=== PATIENT | female | born 1950 | race Caucasian/White ===

== ENCOUNTER 2017-09-17 04:58 | Observation (INO) | payer OTHER, MEDICARE ==
[~2017-09-17] VITALS: Ht 162.6 cm; Wt 81.6 kg
[~2017-09-17 04:58] MED LIST: AMLODIPINE BESYL5 MG PO; ASACOL HD800 MG PO
[2017-09-17] MEDS ORDERED: PANTOPRAZOLE 40 MG 10ML VIAL IV STA (05:29)
[2017-09-17] MEDS ORDERED: SODIUM CHLORIDE 0.9% 1000ML 1,000 ML IV STA (05:29)
[2017-09-17] MEDS ORDERED: ONDANSETRON HCL 4 MG ORAL DISINTEGRATING TAB PO ONE (05:30)
[2017-09-17] MEDS ORDERED: MECLIZINE HCL 12.5 MG TAB PO ONE (05:45)
[2017-09-17 06:29] LABS: BASOPHILS # (AUTO) 0.1 (0.0-0.1); BASOPHILS % 0.5 % (0.0-1.0); EOSINOPHILS # (AUTO) 0.1 (0.0-0.4); HEMATOCRIT 40.8 % (34.2-44.1); HEMOGLOBIN 13.4 g/dL (12.0-16.0); LYMPHOCYTES % 17.6 % (18.0-39.1); MEAN CORPUSCULAR HEMOGLOBIN 28.3 pg (28-32); MEAN CORPUSCULAR HGB CONC 32.8 g/dL (31-35); MEAN CORPUSCULAR VOLUME 86.1 fL (81-99); MONOCYTES # (AUTO) 0.5 (0.2-0.8); MONOCYTES % 4.2 % (4.4-11.3); NEUTROPHILS # (AUTO) 8.6 (2.1-6.9); NEUTROPHILS % 76.3 % (38.7-80.0); PLATELET COUNT 229 x10e3/uL (140-360); RED BLOOD COUNT 4.74 x10e6/uL (3.6-5.1); RED CELL DISTRIBUTION WIDTH 13.8 % (11.7-14.4)
--- NOTE | 2017-09-17 06:29 | Diagnostic Imaging Report ---
EXAMINATION: Head CT without contrast. HISTORY:Dizziness and vomiting. COMPARISON:CT brain from 09/19/2013. TECHNIQUE: Multidetector axial images were obtained from the foramen magnum to the vertex without contrast. The images were reconstructed using brain and bone algorithms. Thin section brain images were reformatted into coronal and sagittal planes. Intravenous contrast: None IMAGE QUALITY: Acceptable. FINDINGS: Skull/scalp: No lytic or blastic. lesions. No surgical changes. Parenchyma: Unchanged focal hypodensity in the posterior aspect of left putamen represents prominent perivascular space or old lacunar infarct. No acute hemorrhage, mass or acute major vascular territorial infarct. Arteries: No density suggestive of thrombosis. Dural sinuses: No abnormal density suggestive of thrombosis. Ventricles: No hydrocephalus or displacement. Extra-axial spaces: No abnormal density. Brain volume: Normal for age. Craniocervical junction: No mass, Chiari malformation, or basilar invagination. Sella: No mass. Paranasal/mastoid sinuses: Imaged portions unremarkable. IMPRESSION: No acute intracranial abnormality. Signed by: Dr. Angela Anderson M.D. on 09/17/2017 6:26 AM
[2017-09-17 06:45] LABS: ALANINE AMINOTRANSFERASE 14 IU/L (0-55); ALBUMIN 3.6 g/dL (3.5-5.0); ALKALINE PHOSPHATASE 68 IU/L (40-150); ANION GAP 15.1 mmol/L (8-16); BLOOD UREA NITROGEN 18 mg/dL (7-26); BUN/CREATININE RATIO 19 (6-25); CALCIUM 9.7 mg/dL (8.4-10.2); CARBON DIOXIDE 24 mmol/L (22-29); CHLORIDE 103 mmol/L (98-107); CREATINE KINASE 41 IU/L (29-168); CREATININE, SERUM 0.95 mg/dL (0.57-1.11); EST GLOMERULAR FILTRATION RATE 59 ML/MIN (60-); GLUCOSE 135 mg/dL (74-118); MAGNESIUM 1.8 MG/DL (1.3-2.1); POTASSIUM 4.1 mmol/L (3.5-5.1); SODIUM 138 mmol/L (136-145)
--- NOTE | 2017-09-17 06:48 | Diagnostic Imaging Report ---
CHEST SINGLE (PORTABLE), 09/17/2017 5:29 AM Technique: CHEST SINGLE (PORTABLE) Comparison: 11/18/2015 Clinical history: Dizziness, vomiting Findings: See Impression Impression: Limited portable view. 1. Stable cardiomediastinal silhouette. 2. Stable linear bibasilar opacities, favor atelectasis or scarring. Consider follow-up upright PA and lateral. 3. Mildly elevated left hemidiaphragm. No effusion or pneumothorax. Signed by: Dr Jolly Ho MD on 09/17/2017 6:44 AM
[2017-09-17 06:58] LABS: INR 1.17
[2017-09-17 06:59] LABS: PARTIAL THROMBOPLASTIN TIME 28.6 seconds (23.8-35.5)
[2017-09-17] MEDS ORDERED: LEVOTHYROXINE50 MCG PO (07:01)
[2017-09-17] MEDS ORDERED: ATENOLOL50 MG PO (07:07)
[2017-09-17] MEDS ORDERED: FLORASTOR250 MG PO (07:07)
[2017-09-17] MEDS ORDERED: APRISO0.375 GM PO (07:07)
[2017-09-17] MEDS ORDERED: ONE DAILY1 EAC1 PO (07:07)
[2017-09-17] MEDS ORDERED: ASPIRIN 325 MG TAB EC PO STA (07:23)
[2017-09-17] MEDS ORDERED: PROMETHAZINE 25MG/ NS 50ML (IV) IV PRN (07:30)
[2017-09-17] MEDS ORDERED: SODIUM CHLORIDE 0.9% 1000ML 1,000 ML IV SCH (07:30)
[2017-09-17] MEDS ORDERED: MECLIZINE HCL 12.5 MG TAB PO PRN (07:30)
[2017-09-17] MEDS ORDERED: ONDANSETRON HCL 4 MG ORAL DISINTEGRATING TAB PO PRN (07:30)
[2017-09-17] MEDS ORDERED: PROMETHAZINE 12.5MG/ NACL 0.9% 12.5 MG/50 ML BAG IV PRN (07:45)
--- OUTSIDE RECORDS SUMMARY | 2017-09-17 07:46 | XMS REPORT ---
Author Author [facility] [place] Address Unknown Phone Unavailable Care Team Providers Care Leaf Conditioner Name Role Phone LAZ RODRIGUEZ Unavailable Unavailable Problems This patient has no known problems. Allergies, Adverse Reactions, Alerts This patient has no known allergies or adverse reactions. Medications This patient has no known medications. Results Test Description Test Time Test Comments Text Results Atomic Results Result Comments CT BRAIN WO [place] [address] Patient Name: CALI SIDDIQUI MR #: [id number] : 1950 Age/Sex: 66/F Req #: [id number] Adm Physician: Ordered by: LAZ RODRIGUEZ MD Report #: [id number] Location: ER Room/Bed: Procedure: [id number] CT/CT BRAIN WO Exam Date: 09/17/17 Exam Time: 0600 REPORT STATUS: Signed EXAMINATION: Head CT without contrast. HISTORY:Dizziness and vomiting. COMPARISON:CT brain from 09/19/2013. TECHNIQUE: Multidetector axial images were obtained from the foramen magnum to the vertex without contrast. The images were reconstructed using brain and bone algorithms. Thin section brain images were reformatted into coronal and sagittal planes. Intravenous contrast: None IMAGE QUALITY: Acceptable. FINDINGS: Skull/scalp: No lytic or blastic. lesions. No surgical changes. Parenchyma: Unchanged focal hypodensity in the posterior aspect of left putamen represents prominent perivascular space or old lacunar infarct. No acute hemorrhage, mass or acute major vascular territorial infarct. Arteries: No density suggestive of thrombosis. Dural sinuses: No abnormal density suggestive of thrombosis. Ventricles: No hydrocephalus or displacement. Extra-axial spaces: No abnormal density. Brain volume: Normal for age. Craniocervical junction: No mass, Chiari malformation, or basilar invagination. Sella: No mass. Paranasal/mastoid sinuses: Imaged portions unremarkable. IMPRESSION: No acute intracranial abnormality. Signed by: Dr. Angela Anderson M.D. on 09/17/2017 6:26 AM Dictated By: ANGELA ANDERSON MD 5 Transcribed By: HUMBERTO on 09/17/17625 COPY TO: LAZ RODRIGUEZ MD CHEST SINGLE (PORTABLE) [place] [address] Patient Name: CALI SIDDIQUI MR #: [id number] : 1950 Age/Sex: 66/F Req #: [id number] Adm Physician: Ordered by: LAZ RODRIGUEZ MD Report #: [id number] Location: ER Room/Bed: Procedure: [id number] DX/CHEST SINGLE (PORTABLE) Exam Date: 09/17/17 Exam Time: 608 REPORT STATUS: Signed CHEST SINGLE (PORTABLE), 2017 5:29 AM Technique: CHEST SINGLE (PORTABLE) Comparison: 11/18/2015 Clinical history: Dizziness, vomiting Findings: See Impression Impression: Limited portable view. 1. Stable cardiomediastinal silhouette. 2. Stable linear bibasilar opacities, favor atelectasis or scarring. Consider follow-up upright PA and lateral. 3. Mildly elevated left hemidiaphragm. No effusion or pneumothorax. Signed by: Dr Nabeel Ho MD on 09/17/2017 6 :44 AM Dictated By: NABEEL HO MD 3 Transcribed By: HUMBERTO on 09/17/17643 COPY TO: LAZ RODRIGUEZ MD
[2017-09-17] MEDS ORDERED: ASPIRIN 81 MG ENTERIC COATED PO SCH (09:00)
[2017-09-17 09:31] LABS: BILIRUBIN,URINE NEGATIVE (NEGATIVE); CLARITY,URINE CLEAR (CLEAR); COLOR,URINE YELLOW (YELLOW); KETONES,URINE NEGATIVE (NEGATIVE); LEUKOCYTE ESTERASE ,URINE TRACE (NEGATIVE); NITRITE,URINE NEGATIVE (NEGATIVE); PROTEIN,URINE DIPSTICK NEGATIVE (NEGATIVE); URINE UROBILINOGEN 0.2 mg/dL (0.2 - 1)
[2017-09-17 09:43] LABS: EPITHELIAL CELLS,URINE FEW /LPF; RBC,URINE 0-5 /HPF (0-5); WBC,URINE (MAN) 0-5 /HPF (0-5)
[2017-09-17 10:27] VITALS: BP 130/64
--- NOTE | 2017-09-17 10:31 | Diagnostic Imaging Report ---
History: 66-year-old female with vertigo Comparison studies: CT brain, 09/17/2017 Technique: Sagittal T2; axial DWI, FLAIR, MPGR, T1, Coronal FLAIR. Intravenous contrast: None Findings: Scalp: Normal in signal . No masses . Bone marrow: Normal in signal intensity. Brain sulci: Appropriate for age. Ventricles: Normal in size . No hydrocephalus . Parenchyma: Scattered FLAIR hyperintensities in the supratentorial white matter likely reflect chronic small vessel ischemic changes. No masses, hemorrhage, acute vascular insults. Suprasellar region: No abnormalities. Craniocervical junction: Patent foramen magnum. No Chiari malformation . Vessels: Normal flow-voids in the arteries and sinuses. IMPRESSION: 1. No acute infarct, intracranial mass, or hemorrhage. 2. Mild chronic small vessel ischemic changes in the supratentorial white matter. Preliminary report provided by Dr. Art Key, neuroradiology fellow on 09/17/2017 at 1030 hours. The images and preliminary report were reviewed and signed by Dr. Xochitl Shankar, neuroradiology faculty, on 09/17/2018 at 1256 hours. Signed by: Dr. Xochitl Shankar M.D. on 09/17/2017 12:59 PM
[2017-09-17] MEDS ORDERED: ACETAMINOPHEN 325 MG TAB PO PRN (12:15)
[2017-09-17 13:35] LABS: CREATINE KINASE 34 IU/L (29-168)
[2017-09-17 14:51] VITALS: BP 120/69
[2017-09-17] MEDS ORDERED: MECLIZINE HCL12.5 MG PO (19:06)
[2017-09-17] MEDS ORDERED: ZOFRAN ODT4 MG PO (19:06)
--- NOTE | 2017-09-18 15:08 | History and Physical ---
ADMISSION HISTORY AND PHYSICAL SHORT STAY AND DISCHARGE SUMMARY DATE OF : 1950 PRIMARY CARE PROVIDER: Dr. Rick Campbell ADMITTING DIAGNOSES 1. Benign positional vertigo. 2. Hypertension. 3. Ulcerative colitis. 4. Hypothyroidism. DISCHARGE DIAGNOSIS 1. Benign positional vertigo. 2. Hypertension. 3. Ulcerative colitis. 4. Hypothyroidism. BRIEF HISTORY: Ms. Head is a 66-year-old lady, who woke up in the middle of the night to use the bathroom with extreme vertigo, unable to get to the bathroom except by crawling on the floor due to the room spinning with nausea and vomiting. She came to the emergency department for evaluation. She was already improving at that time that she was seen. REVIEW OF SYSTEMS: She denies fever, chills or weight loss. She denies sinus congestion or sore throat. She denies chest pain or palpitation. She denies shortness breath, wheezing or cough. She denies abdominal pain, but has had nausea vomiting. She denied melena or diarrhea. She denied dysuria or flank pain. She denies rash or pruritus. She denies joint pain or swelling. She denies bleeding or bruising. She denies headache. She has extreme vertigo. Denied loss of consciousness. Denied depression, agitation, homicidal or suicidal ideation. PAST MEDICAL HISTORY: Significant for hypertension, hypothyroidism, ulcerative colitis. MEDICATIONS 1. Atenolol 50 mg daily. 2. Levothyroxine 25 mcg daily. 3. Mesalamine 375 mg 4 times a day. 4. Florastor saccharomyces boulardii 250 mg twice daily. SHE HAS A STATED ALLERGY TO CODEINE AND SOY. FAMILY HISTORY: Remarkable for hypertension. SOCIAL HISTORY: The patient is . Yakut is her primary language. She is , here with her . She does not smoke, drink or use illegal drugs and she is generally independently functioning. PHYSICAL EXAM PSYCHIATRIC: She is alert and oriented times 3 with normal mood and affect. CONSTITUTIONAL: She has a normal body habitus. She is in no acute distress. VITAL SIGNS: Blood pressure 120/69. Pulse 68 and regular. Respiratory rate 18. O2 sat 96% on room air. Temperature 96.6. HEENT: Head is atraumatic. Her eyes are anicteric with clear conjunctivae. Ears and nares are without erythema or discharge. Oropharynx is clear. NECK: Supple with no mass or thyromegaly. LYMPHATIC SYSTEM: She has no palpable cervical, axillary or inguinal adenopathy. CARDIOVASCULAR: Her heart has a regular rate rhythm without murmur or extra sounds. She has no carotid bruit. She has no peripheral edema. She has palpable dorsal pedal pulses. RESPIRATORY: Lungs are clear to auscultation and percussion with normal respiratory effort. GASTROINTESTINAL: Abdomen is soft without organomegaly, masses or tenderness. She has normal bowel sounds present. CUTANEOUS: Her skin is warm dry to touch. No rash or skin breakdown. MUSCULOSKELETAL: Her joints are in normal alignment without erythema or swelling. She has no calf tenderness. NEUROLOGIC: Exam is nonfocal with intact cranial nerves and no motor or sensory deficits. She has no horizontal nystagmus with eye movements. DIAGNOSTIC STUDIES: Chest x-ray shows no acute disease. CT scan of the brain likewise no acute disease and MRI scan of the brain also no acute disease. TSH is 2.710, which is normal. Troponins are both less than 0.001. Chemistry shows normal electrolytes. CO2 24. Creatinine 0.95, BUN 18 for a normal GFR. Glucose is 135. Transaminases, bilirubin, and alk phos are normal. CBC shows a white count of 11.2 with 76% neutrophils. Hemoglobin 13.4, hematocrit 40.8, and platelet count of 229,000. Coags are normal. IMPRESSION AND PLAN 1. Benign positional vertigo or viral labyrinthitis. Patient has been given meclizine and Zofran as needed for dizziness and nausea. This is self-limiting and the patient is already on improving. She is desiring to go home. She is able to ambulate now with minimal symptoms. 2. Hypertension is well controlled on her current medications. Will continue those. 3. Ulcerative colitis, also well controlled on Apriso, so will continue that. 4. For prophylaxis, the patient was getting Pepcid for gastrointestinal prophylaxis. HOSPITAL COURSE: The patient was admitted to the floor overnight for observation. Her vertigo improved dramatically. She was able to get up out of bed and get to the bathroom with minimal symptoms and she was discharged home to continue meclizine as needed, Zofran as needed. She will continue all of her regular home medications as before. She can resume her regular diet, activity as tolerated, and follow up with her PCP within 2 weeks. Job#: [id number] CQ
== END 2017-09-17 19:28 | disposition home or self-care (01) ==
LOC: ER 04:58 → ERHOLD 07:23 → IMCU 09:18
PROVIDERS: ADMIT Internal Medicine; ATTEND Internal Medicine
DX: R42 Dizziness and giddiness (principal); H81.10 Benign paroxysmal vertigo, unspecified ear; H83.09 Labyrinthitis, unspecified ear; R11.2 Nausea with vomiting, unspecified; R94.31 Abnormal electrocardiogram [ECG] [EKG]; E03.9 Hypothyroidism, unspecified; K51.90 Ulcerative colitis, unspecified, without complications; I10 Essential (primary) hypertension; Z88.5 Allergy status to narcotic agent; Z91.048 Other nonmedicinal substance allergy status
CPT/HCPCS: 36415; 70450; 70551; 71045; 80053; 81001; 82550; 82553; 83735; 84443; 84484; 85025; 85610; 85730; 87086; 93005; 93306; 99284; G0378; J7030

== ENCOUNTER 2022-06-28 20:49 | Inpatient (IN) | payer MEDICARE ==
[~2022-06-28] VITALS: Ht 165.1 cm; Wt 86.2 kg
[~2022-06-28 20:49] MED LIST changes: +APRISO0.375 GM PO; +ATENOLOL50 MG PO; +FLORASTOR250 MG PO; +LEVOTHYROXINE50 MCG PO; +MECLIZINE HCL12.5 MG PO; +ONE DAILY1 EAC1 PO; +ZOFRAN ODT4 MG PO
[2022-06-28 21:10] VITALS: BP 125/69
[2022-06-28] MEDS ORDERED: HEPARIN 25,000 UNIT 1,200 UNIT in DEXTROSE 5% 250ML 250 ML IV SCH (22:30)
[2022-06-28] MEDS ORDERED: HEPARIN 25,000 UNIT DRIP IV ONE (22:54)
[2022-06-28 23:00] VITALS: BP 128/70
[2022-06-29] VITALS (18 sets, daily range): BP systolic 117–144; BP diastolic 46–79
[2022-06-29] MEDS ORDERED: ACETAMINOPHEN 325 MG TAB PO PRN
[2022-06-29] MEDS ORDERED: ONDANSETRON HCL INJ 2MG/ML 2ML 2 MG/ML VIAL IV PRN
[2022-06-29] MEDS ORDERED: METOPROLOL TARTRATE INJ 1 MG/ML VIAL IV PRN
[2022-06-29] MEDS ORDERED: POLYETHYLENE GLYCOL 3350 17 GM PACK PO PRN
[2022-06-29 07:16] LABS: BASOPHILS # (AUTO) 0.1 (0.0-0.1); EOSINOPHILS # (AUTO) 0.2 (0.0-0.4); EOSINOPHILS % 2.4 % (0.0-6.0); HEMATOCRIT 30.2 % (34.2-44.1); HEMOGLOBIN 8.5 g/dL (12.0-16.0); LYMPHOCYTES # (AUTO) 2.8 (1.0-3.2); LYMPHOCYTES % 28.6 % (18.0-39.1); MEAN CORPUSCULAR HEMOGLOBIN 19.6 pg (28-32); MEAN CORPUSCULAR HGB CONC 28.1 g/dL (31-35); MEAN CORPUSCULAR VOLUME 69.7 fL (81-99); MONOCYTES # (AUTO) 0.6 (0.2-0.8); MONOCYTES % 6.3 % (4.4-11.3); NEUTROPHILS % 61.5 % (38.7-80.0); PLATELET COUNT 209 x10e3/uL (140-360); RED BLOOD COUNT 4.33 x10e6/uL (3.6-5.1); RED CELL DISTRIBUTION WIDTH 17.8 % (11.7-14.4)
[2022-06-29 07:44] LABS: ALBUMIN 3.2 g/dL (3.5-5.0); ANION GAP 13.1 mmol/L (8-16); CALCIUM 8.8 mg/dL (8.4-10.2); CREATININE, SERUM 0.9 mg/dL (0.57-1.11); POTASSIUM 4.1 mmol/L (3.5-5.1)
[2022-06-29 08:03] LABS: CHOL/HDL RATIO 5.6 (3.0-3.6); MAGNESIUM 1.9 MG/DL (1.3-2.1); PHOSPHORUS 3.7 MG/DL (2.3-4.7)
[2022-06-29] MEDS ORDERED: ONDANSETRON HCL 4 MG ORAL DISINTEGRATING TAB PO PRN (08:15)
[2022-06-29] MEDS ORDERED: ZOLPIDEM TARTRATE 5 MG TAB PO PRN (08:15)
[2022-06-29 08:23] LABS: THYROID STIMULATING HORMONE 3.716 uIU/mL (0.350-4.940)
[2022-06-29 08:49] LABS: FERRITIN 29.53 ng/mL (4.63-204.00)
[2022-06-29] MEDS: MULTIVITAMINS/MINERALS TAB PO SCH (09:50)
[2022-06-29] MEDS: FAMOTIDINE 20 MG/2 ML VIAL IV SCH ×2 (09:50→17:03)
[2022-06-29] MEDS: DOCUSATE SODIUM 100 MG CAP PO SCH ×2 (09:50→17:03)
[2022-06-29] MEDS: MESALAMINE 0.375 GM CAPCR PO SCH (11:24)
[2022-06-29] MEDS ORDERED: ENOXAPARIN SODIUM INJ 100 MG/ML SYR SC SCH (16:00)
[2022-06-29] MEDS ORDERED: SODIUM CHLORIDE 0.9% 1000ML 1,000 ML IV SCH (17:00)
[2022-06-29] MEDS: ENOXAPARIN SODIUM INJ 100 MG/ML SYR SC SCH (17:56)
[2022-06-29] MEDS: ATORVASTATIN 20 MG TAB PO SCH (21:29)
[2022-06-30] VITALS (14 sets, daily range): BP systolic 97–161; BP diastolic 44–98
[2022-06-30] MEDS: LEVOTHYROXINE SODIUM 25 MCG TABLET PO SCH (06:02)
[2022-06-30] MEDS: ENOXAPARIN SODIUM INJ 100 MG/ML SYR SC SCH ×2 (06:02→17:15)
[2022-06-30 07:11] LABS: BASOPHILS # (AUTO) 0.1 (0.0-0.1); BASOPHILS % 0.9 % (0.0-1.0); EOSINOPHILS # (AUTO) 0.2 (0.0-0.4); EOSINOPHILS % 2.9 % (0.0-6.0); HEMATOCRIT 32.7 % (34.2-44.1); HEMOGLOBIN 8.9 g/dL (12.0-16.0); LYMPHOCYTES # (AUTO) 2.1 (1.0-3.2); LYMPHOCYTES % 26.9 % (18.0-39.1); MEAN CORPUSCULAR HEMOGLOBIN 19.4 pg (28-32); MEAN CORPUSCULAR HGB CONC 27.2 g/dL (31-35); MEAN CORPUSCULAR VOLUME 71.4 fL (81-99); MONOCYTES # (AUTO) 0.6 (0.2-0.8); MONOCYTES % 7.2 % (4.4-11.3); NEUTROPHILS # (AUTO) 4.7 (2.1-6.9); NEUTROPHILS % 61.7 % (38.7-80.0); PLATELET COUNT 218 x10e3/uL (140-360); RED BLOOD COUNT 4.58 x10e6/uL (3.6-5.1); RED CELL DISTRIBUTION WIDTH 17.9 % (11.7-14.4)
[2022-06-30 07:53] LABS: ALBUMIN 3.2 g/dL (3.5-5.0); ALBUMIN/GLOBULIN RATIO 0.9 (0.8-2.0); CALCIUM 8.9 mg/dL (8.4-10.2); CREATININE, SERUM 0.91 mg/dL (0.57-1.11)
[2022-06-30] MEDS: DOCUSATE SODIUM 100 MG CAP PO SCH ×2 (09:00→17:15)
[2022-06-30] MEDS: FAMOTIDINE 20 MG/2 ML VIAL IV SCH ×2 (09:10→17:00)
[2022-06-30] MEDS: SODIUM FERRIC GLUCONATE COMPLX 125 MG in SODIUM CHLORIDE 0.9% 100 ML IV SCH (09:10)
[2022-06-30] MEDS: MULTIVITAMINS/MINERALS TAB PO SCH (10:29)
[2022-06-30] MEDS: MESALAMINE 0.375 GM CAPCR PO SCH (10:29)
[2022-06-30] MEDS ORDERED: NIFEDIPINE CR 30 MG TAB PO ONE (10:30)
[2022-06-30] MEDS ORDERED: MIDAZOLAM HCL 2 MG/2 ML VIAL ONE (12:04)
[2022-06-30] MEDS ORDERED: HEPARIN SOD/SOD CHLORIDE 1,000 ML ONE ×2 (12:05→12:10)
[2022-06-30] MEDS ORDERED: FENTANYL CITRATE/PF 100MCG/2 ML INJ ONE (12:05)
[2022-06-30] MEDS ORDERED: LIDOCAINE HCL 2% LOCAL 20 ML VIAL ONE (12:05)
[2022-06-30] MEDS ORDERED: DIPHENHYDRAMINE HCL INJ 50 MG/ML VIAL ONE (13:02)
[2022-06-30] MEDS ORDERED: ACETAMIN/BUTALBITAL/CAFFEINE TAB PO ONE (21:15)
[2022-06-30] MEDS: ATORVASTATIN 20 MG TAB PO SCH (21:26)
[2022-07-01] VITALS (7 sets, daily range): BP systolic 124–136; BP diastolic 53–65
[2022-07-01] MEDS ORDERED: ACETAMIN/BUTALBITAL/CAFFEINE TAB PO PRN (01:00)
[2022-07-01] MEDS: ENOXAPARIN SODIUM INJ 100 MG/ML SYR SC SCH (05:21)
[2022-07-01] MEDS: LEVOTHYROXINE SODIUM 25 MCG TABLET PO SCH (05:21)
[2022-07-01] MEDS: MESALAMINE 0.375 GM CAPCR PO SCH (08:28)
[2022-07-01] MEDS: MULTIVITAMINS/MINERALS TAB PO SCH (08:28)
[2022-07-01] MEDS: DOCUSATE SODIUM 100 MG CAP PO SCH (08:28)
[2022-07-01] MEDS: FAMOTIDINE 20 MG/2 ML VIAL IV SCH (08:29)
[2022-07-01] MEDS: SODIUM FERRIC GLUCONATE COMPLX 125 MG in SODIUM CHLORIDE 0.9% 100 ML IV SCH (08:29)
[2022-07-01] MEDS ORDERED: IRON SUCROSE 100 MG in SODIUM CHLORIDE 0.9% 100 ML IV SCH (09:00)
[2022-07-01] MEDS ORDERED: NIFEDIPINE CR 30 MG TAB PO SCH (09:00)
[2022-07-01] MEDS ORDERED: NIFEDIPINE ER30 M1 PO (11:34)
[2022-07-01] MEDS ORDERED: FERROUS SULFAT325 MG PO (11:35)
[2022-07-01] MEDS ORDERED: ELIQUIS5 MG PO (11:36)
[2022-07-01] MEDS ORDERED: FAMOTIDINE 20 MG TAB PO SCH (16:30)
[2022-07-01] MEDS ORDERED: APIXABAN 5 MG TABLET PO SCH (17:00)
== END 2022-07-01 12:53 | disposition home or self-care (01) | DRG 176 ==
LOC: ICU 21:21 → MED/SURG 06-30 11:45
PROVIDERS: ADMIT Internal Medicine; ATTEND Internal Medicine
PROC: 4A023N6 Measurement of Cardiac Sampling and Pressure, Right Heart, Percutaneous Approach (ICD-10-PCS; principal; 2022-06-30)
PROC: B31T1ZZ Fluoroscopy of Left Pulmonary Artery using Low Osmolar Contrast (ICD-10-PCS; 2022-06-30)
PROC: B31S1ZZ Fluoroscopy of Right Pulmonary Artery using Low Osmolar Contrast (ICD-10-PCS; 2022-06-30)
PROC: B2141ZZ Fluoroscopy of Right Heart using Low Osmolar Contrast (ICD-10-PCS; 2022-06-30)
DX: I26.99 Other pulmonary embolism without acute cor pulmonale (principal); K51.90 Ulcerative colitis, unspecified, without complications; I27.20 Pulmonary hypertension, unspecified; R09.02 Hypoxemia; I10 Essential (primary) hypertension; D50.9 Iron deficiency anemia, unspecified; E03.9 Hypothyroidism, unspecified; E66.01 Morbid (severe) obesity due to excess calories; G47.00 Insomnia, unspecified; Z60.2 Problems related to living alone; D72.829 Elevated white blood cell count, unspecified; K21.9 Gastro-esophageal reflux disease without esophagitis; E78.2 Mixed hyperlipidemia; Z86.16 Personal history of COVID-19; Z98.84 Bariatric surgery status
CPT/HCPCS: 36415; 80053; 80061; 82607; 82728; 83036; 83540; 83735; 83880; 84100; 84443; 84466; 84484; 85025; 85045; 85730; 93306; 93451; 94799; 99152; 99153; 99252; C1751; J1200; J1650; J2001; J2250; J2916; J3010; J7030; J7050